=== PATIENT | female | born 1990 | race African-American/Black ===

== ENCOUNTER 2023-07-09 16:20 | Emergency (ER) | payer OTHER, SELFPAY ==
[2023-07-09 16:35] VITALS: BP 102/52; PULSE 60; RESP 14; TEMP 36.6; O2SAT 100
--- NOTE | 2023-07-09 17:03 | ED.URI ---
HPI - URI/Sore Throat General Chief Complaint: Upper Respiratory Infection Stated Complaint: cough Time Seen by Provider: 07/09/23 17:03 Source: patient Mode of arrival: ambulatory Limitations: no limitations History of Present Illness HPI Narrative: 33-year-old female presented for complaint of cough for about 5 days. Reports mild sinus congestion/drainage. Denies sob, wheezing, n/v/d/f/c. Not taking anything for symptoms. Denies sick contacts. States she wanted to make sure she does not have fluid on lungs, was advised to monitor this after her endoscopy a few weeks ago. Related Data Home Medications Medication Instructions Recorded Confirmed ergocalciferol (vitamin D2) 1,250 1,250 mcg PO WEEKLY 07/09/23 07/09/23 mcg (50,000 unit) capsule gabapentin 300 mg capsule 300 mg PO DIRECTED 07/09/23 07/09/23 hydroxychloroquine 200 mg tablet 200 mg PO DIRECTED 07/09/23 07/09/23 meloxicam 15 mg tablet 15 mg PO DAILY 07/09/23 07/09/23 Allergies Allergy/AdvReac Type Severity Reaction Status Date / Time NSAIDS (Non-Steroidal AdvReac Other Verified 07/09/23 16:52 Anti-Inflamma Review of Systems Review of Systems: CONSTITUTIONAL: Denies body aches, fever, chills, or sweats. EYES: Denies visual changes, redness, or discharge. ENT: Denies rhinorrhea, congestion, sore throat, or otalgia. CARDIOVASCULAR: Denies chest pain, palpitations, or edema. RESPIRATORY: Reports cough,denies sob, wheezing. GASTROINTESTINAL: Denies abdominal pain, nausea, vomiting, or diarrhea. GENITOURINARY: Denies dysuria or hematuria. SKIN: Denies rash, itching, or wounds. MUSCULOSKELETAL: Denies back pain, joint pain, or myalgia. NEUROLOGIC: Denies headache, numbness, tingling, or weakness. All systems reviewed & are unremarkable except as noted in HPI and below PMFSH Past Medical History Medical History (Updated 07/09/23 @ 17:12 by Melly Mendoza APRN) No pertinent past medical history Comments At time of signature, I have reviewed and agree with nursing past medical, surgical, social and family history unless otherwise noted. Please see nursing chart for further information. There is no relevant family history pertinent to the presenting complaint Exam Narrative: GENERAL: Well-appearing, in no acute distress. EYES: EOMI. No redness or drainage. Conjunctivae normal. ENT: Mucous membranes pink and moist. No rhinorrhea. TMs normal bilaterally. Throat normal. Uvula midline. NECK: Normal AROM. Supple. CHEST: No respiratory distress. LCTAB HEART: Regular rate and rhythm. No murmur appreciated. ABDOMEN: Soft, nontender, nondistended, normal active bowel sounds. EXTREMITIES: Normal range of motion. No edema. SKIN: Warm, dry, no rash. Capillary refill normal. Normal skin turgor. NEURO: Alert and oriented x3. Gait steady. PSYCH: Normal affect. Course Course Emergency Course: Patient is aware of diagnosis, understands and agrees to treatment plan. Anticipatory guidance given. Patient agrees to follow-up as directed and is aware of reasons to seek care at the emergency department. Portions of this record may have been created with voice recognition software Level of Care: Express Care Visit Vital Signs Vital signs: Vital Signs Temperature 98 F 07/09/23 16:35 Pulse Rate 60 07/09/23 16:35 Respiratory Rate 14 07/09/23 16:35 Blood Pressure 102/52 L 07/09/23 16:35 Pulse Oximetry 100 07/09/23 16:35 Oxygen Delivery Room Air 07/09/23 16:35 Temperature 98 F 07/09/23 16:35 Pulse Rate 60 07/09/23 16:35 Respiratory Rate 14 07/09/23 16:35 Blood Pressure 102/52 L 07/09/23 16:35 Pulse Oximetry 100 07/09/23 16:35 Oxygen Delivery Room Air 07/09/23 16:35 MDM - URI/Sore Throat MDM Narrative Medical decision making narrative: Discussed physical exam findings. Advised supportive measures and signs/symptoms to go to the ER. Pt is appropriate for outpt treatment and f/u. D
== END 2023-07-09 17:23 | disposition home or self-care (01) ==
PROVIDERS: Emergency Provider Nurse Practitioner Family
DX: B34.9 Viral infection, unspecified (principal)
CPT/HCPCS: 99213; G0463

== ENCOUNTER 2023-11-06 16:53 | Emergency (ER) | payer OTHER, SELFPAY ==
[2023-11-06 17:00] VITALS: BP 127/65; PULSE 89; RESP 18; TEMP 36.3; O2SAT 100
--- NOTE | 2023-11-06 18:02 | ED.URI ---
HPI - URI/Sore Throat General Chief Complaint: Upper Respiratory Infection Stated Complaint: Sinus Time Seen by Provider: 11/06/23 17:52 Source: patient and RN notes reviewed Mode of arrival: ambulatory Limitations: no limitations History of Present Illness HPI Narrative: Patient presents today complaining of a headache, sinus pressure, and diarrhea since last night. Denies cough, rhinorrhea, shortness of breath, chest pain. She has tried no medication for symptoms prior to arrival. Daughter with similar symptoms. She did receive a flu vaccine this season. Related Data Home Medications Medication Instructions Recorded Confirmed ergocalciferol (vitamin D2) 1,250 1,250 mcg PO WEEKLY 07/09/23 11/06/23 mcg (50,000 unit) capsule gabapentin 300 mg capsule 300 mg PO DIRECTED 07/09/23 11/06/23 omeprazole 40 mg capsule,delayed 40 mg DIRECTED 11/06/23 11/06/23 release Allergies Allergy/AdvReac Type Severity Reaction Status Date / Time NSAIDS (Non-Steroidal AdvReac Other Verified 07/09/23 16:52 Anti-Inflamma Review of Systems Review of Systems: CONSTITUTIONAL: Denies body aches, fever, chills, or sweats. EYES: Denies visual changes, redness, or discharge. ENT: Denies rhinorrhea, congestion, sore throat, or otalgia.+ sinus pressure CARDIOVASCULAR: Denies chest pain, palpitations, or edema. RESPIRATORY: Denies cough or dyspnea. GASTROINTESTINAL: Denies abdominal pain, nausea, vomiting. + diarrhea GENITOURINARY: Denies dysuria or hematuria. SKIN: Denies rash, itching, or wounds. MUSCULOSKELETAL: Denies back pain, joint pain, or myalgia. NEUROLOGIC: Denies numbness, tingling, or weakness.+ headache PSYCH: Denies depression or anxiety. PMFSH Past Medical History Medical History No pertinent past medical history Comments At time of signature, I have reviewed and agree with nursing past medical, surgical, social and family history unless otherwise noted. Please see nursing chart for further information. There is no relevant family history pertinent to the presenting complaint Exam Narrative: GENERAL: Mildly ill-appearing, well-nourished, and in no acute distress. HEAD: Normocephalic, atraumatic. EYES: EOMI. No redness or drainage. Conjunctivae normal. ENT: Mucous membranes pink and moist. Nares clear. No rhinorrhea. TMs normal bilaterally. Throat normal. Uvula midline. NECK: Normal AROM. Supple. No lymphadenopathy. CHEST: No respiratory distress. Clear to auscultation. HEART: Regular rate and rhythm. No murmur appreciated. EXTREMITIES: Normal range of motion. No edema. SKIN: Warm, dry, no rash. Capillary refill normal. Normal skin turgor. NEURO: No focal deficits. Alert and oriented x3. Gait steady. PSYCH: Normal affect. No signs of depression or anxiety. Course Course Level of Care: Express Care Visit Vital Signs Vital signs: Vital Signs Temperature 97.3 F L 11/06/23 17:00 Pulse Rate 89 11/06/23 17:00 Respiratory Rate 18 11/06/23 17:00 Blood Pressure 127/65 11/06/23 17:00 Pulse Oximetry 100 11/06/23 17:00 Oxygen Delivery Room Air 11/06/23 17:00 Temperature 97.3 F L 11/06/23 17:00 Pulse Rate 89 11/06/23 17:00 Respiratory Rate 18 11/06/23 17:00 Blood Pressure 127/65 11/06/23 17:00 Pulse Oximetry 100 11/06/23 17:00 Oxygen Delivery Room Air 11/06/23 17:00 Reviewed MDM - URI/Sore Throat MDM Narrative Medical decision making narrative: COVID and influenza negative. Daughter was diagnosed with influenza during same visit. Discussed [id number] medication use as well as when to go to the ER. No prescription medications indicated at this time. Anticipatory guidance given. Differential Diagnosis Differential diagnosis: Likely upper respiratory infection, viral infection, influenza and other (COVID-19) Lab Data Attestation: I reviewed the patient's lab results. Lab
== END 2023-11-06 18:23 | disposition home or self-care (01) ==
PROVIDERS: Emergency Provider Nurse Practitioner
DX: B34.9 Viral infection, unspecified (principal); Z20.822 Contact with and (suspected) exposure to COVID-19
CPT/HCPCS: 87426; 87804; 99213; G0463